=== PATIENT | female | born 1985 | race Hispanic/Latino ===

== ENCOUNTER 2017-07-18 23:25 | Emergency (ER) | payer OTHER ==
[2017-07-18] MEDS ORDERED: IBUPROFEN 600 MG TABLET ONE (23:45)
[2017-07-18] MEDS ORDERED: ORPHENADRINE CITRATE 30 MG/ML ML ONE (23:45)
== END 2017-07-19 00:13 | disposition home or self-care (01) ==
LOC: EDH 23:25
DX: S16.1XXA Strain of muscle, fascia and tendon at neck level, initial encounter (principal); V49.59XA Passenger injured in collision with other motor vehicles in traffic accident, initial encounter; Y93.89 Activity, other specified; Y92.89 Other specified places as the place of occurrence of the external cause; Y99.8 Other external cause status
CPT/HCPCS: 96372; 99283; J2360